=== PATIENT | female | born 1970 | race Caucasian/White ===

== ENCOUNTER → 2016-11-26 | Outpatient (CLI) | payer BC, OTHER ==
[~2016-11-26] MED LIST: DARV100T; FLEXERIL; IBUP800T; LEVA500T; MIDOL; MUCINEX OTC; SUDAFED; VICO5TAB
--- NOTE | 2016-11-27 04:13 | REP ---
Clinical: Vaginal bleeding and history of leiomyoma. Technique: Transabdominal pelvic ultrasound followed by transvaginal examination for better evaluation of the endometrium and adnexa. Comparison: 12/16/2010. Findings: Bladder is unremarkable and measures 8.2 x 6.5 x 4.7 cm. Anteverted, enlarged and heterogeneous uterus measures 14.5 x 9.5 x 10.3 cm. A central, submucosal heterogeneous fibroid is again noted measuring 5.9 cm maximal diameter with mass effect on the endometrial canal. More proximal portion of the endometrial canal in the lower uterine segment appears normal and measures 7.8 mm thickness. No endocervical fluid is identified on current examination. The bilateral ovaries are normal in appearance. Right ovary measures 3.1 x 2.4 x 2.4 cm. Left ovary measures 4.7 x 2.5 x 2.5 cm. No pelvic fluid or adnexal mass lesion. Impression: Large heterogeneous submucosal fibroid increased from prior examination and currently measuring 5.9 cm maximal diameter. Signed by Philipp Roca MD 11/27/2016 04:04 A
== END ==
LOC: M RAD 16:04
PROVIDERS: ATTEND Obstetrics & Gynecology
DX: D25.1 Intramural leiomyoma of uterus (principal)

== ENCOUNTER 2017-02-19 05:41 | Day surgery (SDC) | payer BC, OTHER ==
[~2017-02-19] VITALS: Ht 165.1 cm; Wt 99.3 kg
[2017-02-19] VITALS (7 sets, daily range): BP systolic 111–135; BP diastolic 57–79
[~2017-02-19 05:41] MED LIST changes: +IBUP200C PO; +MIDO200C PO; +SUDA1TAB3 PO; +ZOLO100T PO; +ZYRT10CA PO
[2017-02-19] MEDS ORDERED: LR 1,000 ML IV SCH (06:00)
[2017-02-19 06:19] LABS: MEAN CORPUSCULAR HEMOGLOBIN 20.6 pg (27.0-33.0); MEAN CORPUSCULAR HGB CONC 28.4 g/dl (32.0-36.5); MEAN CORPUSCULAR VOLUME 72.3 fl (80.0-96.0); WHITE BLOOD COUNT 6.2 K/mm3 (4.0-10.0)
[2017-02-19 06:30] LABS: CONTROL LINE HCG INT CTR LINE PRESENT
[2017-02-19] MEDS ORDERED: METHYLENE BLUE 0.5% (5MG/ML) 10 ML AMP (PROVAYBLUE)(Q9968 PER 1MG) As Ordered ONE (07:15)
[2017-02-19] MEDS ORDERED: PROPOFOL 200 MG/20 ML VIAL As Ordered ONE ×2 (07:23→10:45)
[2017-02-19] MEDS ORDERED: ROCURONIUM BROMIDE 50 MG/5 ML VIAL As Ordered ONE ×3 (07:23→10:15)
[2017-02-19] MEDS ORDERED: LIDOCAINE 2% INJ 100 MG/5 ML SDV (FOR ANES.) As Ordered ONE (07:23)
[2017-02-19] MEDS ORDERED: fentaNYL 250 MCG/5 ML INJECTION (J3010) As Ordered ONE (07:23)
[2017-02-19] MEDS ORDERED: MIDAZOLAM INJ 2 MG/2 ML VIAL (J2250) As Ordered ONE (07:24)
[2017-02-19] MEDS ORDERED: PHENYLephrine HCL 500 MCG/5 ML (100MCG/ML) SYRINGE (J2370) As Ordered ONE (08:25)
[2017-02-19] MEDS ORDERED: ePHEDrine SULFATE 25 MG/5 ML(5MG/ML) SYRINGE As Ordered ONE (08:25)
[2017-02-19] MEDS ORDERED: ONDANSETRON 4MG/2ML VIAL (J2405) As Ordered ONE (08:30)
[2017-02-19] MEDS ORDERED: NEOSTIGMINE 1MG/ML 5 ML SYRINGE (J2710) As Ordered ONE (08:30)
[2017-02-19] MEDS ORDERED: KETOROLAC 60 MG/2 ML VIAL (J1885) As Ordered ONE (08:30)
[2017-02-19] MEDS ORDERED: dexameTHASONE 4 MG/ML 1ML VIAL (J1100) As Ordered ONE (08:30)
[2017-02-19] MEDS ORDERED: GLYCOPYRROLATE INJ 0.2 MG/ML 2 ML VIAL As Ordered ONE (08:30)
[2017-02-19] MEDS ORDERED: HYDROmorphone HCL 2 MG/ML 1ML VIAL (J1170) As Ordered ONE (08:31)
[2017-02-19] MEDS ORDERED: LABETALOL HCL 100 MG/20 ML VIAL As Ordered ONE (09:17)
[2017-02-19] MEDS: LR 1,000 ML IV SCH ×4 (12:31→21:00)
[2017-02-19] MEDS ORDERED: fentaNYL 100 MCG/2 ML INJECTION (J3010) IV PRN (12:45)
[2017-02-19] MEDS ORDERED: MORPHINE 2 MG/ML 1ML SYRINGE IV PRN (12:45)
[2017-02-19] MEDS ORDERED: EPIDURAL/PCA KEYS XX PRN (13:00)
[2017-02-19] MEDS ORDERED: NALOXONE INJ 0.4 MG/1 ML VIAL (J2310) IV PRN (13:00)
[2017-02-19] MEDS ORDERED: NORCO, ANEXSIA 5/325MG TABLET (HYDROcodone/ACETAMINOPHEN) PO PRN (13:00)
[2017-02-19] MEDS ORDERED: NALBUPHINE HCL 10 MG/ML AMP (J2300) IV PRN (13:00)
[2017-02-19] MEDS ORDERED: MORPHINE PCA 1MG/ML 100ML CADD IV PRN (13:00)
[2017-02-19] MEDS ORDERED: IBUPROFEN 600 MG TAB PO PRN (13:00)
[2017-02-19] MEDS ORDERED: diphenhydrAMINE INJ 50MG/ML VIAL (J1200) IV PRN (13:00)
[2017-02-19] MEDS: ONDANSETRON 4MG/2ML VIAL (J2405) IV PRN ×2 (13:30→18:46)
[2017-02-19] MEDS ORDERED: METOCLOPRAMIDE INJ 10MG/2ML VIAL (J2765) IV PRN (13:45)
[2017-02-19] MEDS ORDERED: ONDANSETRON 4MG/2ML VIAL (J2405) IV PRN (13:45)
[2017-02-20] VITALS: BP 107/55
[2017-02-20 04:00] VITALS: BP 106/57
[2017-02-20] MEDS: LR 1,000 ML IV SCH (04:02)
[2017-02-20 08:00] VITALS: BP 120/70
[2017-02-20 08:12] LABS: MEAN CORPUSCULAR HEMOGLOBIN 21.2 pg (27.0-33.0); MEAN CORPUSCULAR HGB CONC 29.2 g/dl (32.0-36.5); MEAN CORPUSCULAR VOLUME 72.6 fl (80.0-96.0); RED CELL DISTRIBUTION WIDTH 17.3 % (11.5-14.5)
[2017-02-20] MEDS ORDERED: NORC1TAB4 PO (08:45)
[2017-02-20] MEDS ORDERED: ZOLO100T PO (08:45)
[2017-02-20] MEDS ORDERED: ADVI200T PO (08:45)
[2017-02-20] MEDS ORDERED: SERTRALINE 100 MG TAB PO SCH (09:00)
--- NOTE | 2017-02-20 15:30 | RO ---
DATE OF PROCEDURE: 02/19/2017 PREPROCEDURE DIAGNOSES/INDICATION FOR SURGERY: Menorrhagia, dysmenorrhea and fibroids. POSTPROCEDURE DIAGNOSES: Menorrhagia, dysmenorrhea and fibroids. PROCEDURE: Robotic-assisted hysterectomy with bilateral salpingectomy. The patient retained her ovaries at her request. She also had cystoscopy due to some unusual adhesions along the pelvic side wall and closer than average proximity to the ureter and the distortion by the large fibroids. The uterus was 528 grams, weighed in the operating room. SURGEON: Dr. Emily Aviles [employer]ING [employer]TER HELPER: Kendy Rivas NP ANESTHESIA: General endotracheal anesthesia. DESCRIPTION OF PROCEDURE: Lilibeth was brought to the operating room where sufficient general endotracheal anesthesia was induced, and she was prepped, draped, and positioned in the usual sterile fashion. Weighed speculum was placed and with effort a single toothed tenacula was put on the cervix. The uterus was quite elevated from the pelvis, as noted on examination in the office. The uterine manipulator was placed with care taken to get a good placement and more effort than is typical because of the length of the vagina, which is unusually long. The uterus also sounded to 14 after this. Under anesthesia, the uterus felt about 18 weeks size in this patient, although she is not 6 foot tall either. After the uterine manipulator had been placed and the Morin with the ability to backfill was placed, attention was turned to the abdomen where a transverse semilunar incision was made at the umbilicus. Sharp and blunt dissection were continued through the subcutaneous tissues to the level of the rectus fascia, which was transversely incised, secured with #0 Vicryl retention sutures, and the peritoneum was bluntly entered under direct visualization. We then placed the Debra cannula and CO2 insufflation was then begun. After adequate CO2 insufflation, the peritoneal cavity was visualized. As noted in the pictures, the uterus is essentially to umbilicus when you add the length of the trocar. We actually had to be careful not to hit the uterus with the trocar because it was well within reach. Initial evaluation did show a window around the uterus anteriorly, smaller than typical but not absent, and normal ovaries. We placed two left sided and right sided port for the robot and placed the patient in Trendelenburg, as it typical and then docked the robot. Kendy Rivas manipulated the uterus, which had limited mobility due to the large size and the fact that it was past the pelvic brim and simply filling most of the space so not tremendously mobile. I operated the robot. We started by freeing the tube from the ovary and then transecting the utero-ovarian suspensory ligaments. These were foreshortened, probably because of the elevation of the uterus. The round ligaments were also cauterized using bipolar and transected. These too were foreshortened, again most likely due to uterine anatomy. Having freed the round ligament and the ovaries most of the way, we noticed on the patient's right side that there was unusually close attachment. The ovary was essentially attached to the uterus and so we were working slowly through this connection and there did not appear to be a lesion. The patient had previous ovarian cystectomy on that side so I do not think that it was attached because of ovarian lesion but rather probably some post surgical scarring had shortening of the tissues with the uterine anatomy because the round ligament was only about 1 cm long on that side as well, so there was less than typical distance. We were able at this point to see the ureter so we had good separation there, so we just worked out way slowly through this dissection but having freed the round and the ovary from the uterus and they of course connected right fallopian tube. I could then see that there was essentially no development of broad ligament whatsoever. The uterus itself was impinging on the right pelvic side wall fully along that way and there was really no peritoneal window, just a connection and there are some pictures of this. I am not sure if that is because just over time that she remodeled or if that is because the fibroid started down in the lower uterine segment on top of the cervix where there would have been a shorter connection and worked its way under the peritoneum. Certainly, at that point, I did not have knowledge of that, but we became concerned that there would be difficulty in developing a plane far enough away from the ureter at this point so we had the team open the open hysterectomy tray so that we would be ready should any of the vessels that were supplying this large fibroid uterus started to bleed and we could not get separation from the ureter. We gradually worked our way anteriorly where we worked with the cold scissors, so I did not cauterize as I worked through this but rather just worked with the cold scissors through the peritoneum as we typically would have in the past in an open case and this way I could free the bladder, we could backfill and see that it was low enough. The patient had a relatively long cervix, so we had some distance there. Having freed the bladder, we were able to work by rotating the uterus clockwise as you looked head down, so left side up. We were able to work on the vascular supply on the left side to dissect the peritoneum down there as well. There were multiple recruited vessels there, more than is typical, but we worked slowly and gradually and as we worked it was very clear that each of them had a pulse and it was not ureter, or at least it appeared very clear and they did bleed on occasion enough that we felt confident that we were working with blood vessels. We gradually freed that side of the uterus. Having freed that side of the uterus and maintained some rotational mobility, then able to work anteriorly on the right side again and then having freed that, we were able to work slowly posteriorly. Again, I used cold scissors on this. I did not cauterize as would typically be the case because I knew that the ureter was in close proximity at this point, so we cut down that peritoneal connection cold, but we were able to do so. Then having that, we isolated the uterine vasculature, rotating the uterus counterclockwise, as you look head down, and so right side up, and secured the blood supply in this fashion. It had splayed out over that enlarged uterus, so we had several branches to work our way through, again more than is typical, but that is to be expected with such a large fibroid uterus. Having worked through these carefully, we went ahead and transected them and then worked our way down medial to those to reach the cervix so that we could have a pedicle that was accessible should we get any bleeding. Having done that, we were able to enter into the colpotomy anteriorly. This I did use cautery once I had freed everything with cold scissors, and we then worked around the left side where we had much more mobility and worked around to the posterior from the left side. We could not get all the way around, even with rotating the uterus, so we went back anteriorly and then worked from anterior to posterior on the left side again. We had some difficulty as we got closer to that ureter, so we rotated the uterus as needed and freed the peritoneum with cold scissors and made sure that we had that ureter falling away and some upward pressure on the cup and then carefully cauterized. When we finally freed the cervix completely, we then delivered that into the vagina. Of course the uterus would not just deliver intact, and there did not appear to be a pedunculated external fibroid that we could just cut off, so I went below. We removed the manipulator and using tenaculum we delivered the cervix and the lower uterine segment into the vagina and then used scissors to just bivalve the uterus so that we could angle it because the fundus was wider than the vagina and so we bivalved the cervix and then delivered first the left fundus and then the right fundus, angling it that way so the uterus was partially split and came out with the attached fallopian tubes, but, of course, not with ovaries, which the patient preferred to retain. We were then able to go back robotically and close the cuff. Having closed it and looked at all of those vessels, I made a decision to go ahead, due to her anatomy and that close proximity, give her some methylene blue and do a cystoscopy. We were able to see with cystoscopy that we had not injured the bladder, as expected after backfilling it several times to know that, but also we were able to see jets of blue from both ureters. We then ended the case and went back to the abdomen and closed through the ports and closed those wounds. The fascial wound at the umbilicus and the slightly larger trocar was closed with #0 Vicryl retention sutures and the 8 mm ports were all closed at the skin with #3-0 and subcuticular stitch. That skin stitch was also used at the umbilicus. Dry sterile dressings then applied. Estimated blood loss for the procedure: About 100 mL. Fluid replacement was crystalloid. Complications: None. Condition and Disposition: Lilibeth tolerated the procedure (cut off).
== END 2017-02-20 12:25 | disposition home or self-care (01) ==
LOC: M SDC 05:41 → M PED 13:18 → M SDC 02-20 12:25
PROVIDERS: ATTEND Obstetrics & Gynecology
DX: N92.0 Excessive and frequent menstruation with regular cycle (principal); N94.6 Dysmenorrhea, unspecified; D25.9 Leiomyoma of uterus, unspecified; K44.9 Diaphragmatic hernia without obstruction or gangrene; K58.8 Other irritable bowel syndrome; Z87.891 Personal history of nicotine dependence; Z79.899 Other long term (current) drug therapy
CPT/HCPCS: 36415; 58573; 84703; 85027; 86850; 86900; 86901; 88309; 96375; 96376; J0690; J1100; J1170; J1200; J1885; J2250; J2370; J2405; J2710; J3010; Q9968

== ENCOUNTER → 2017-03-09 | Outpatient (REF) | payer OTHER ==
[~2017-03-09] MED LIST changes: +ADVI200T PO; +NORC1TAB4 PO
[2017-03-09 13:39] LABS: BASO % 0.3 % (0.0-1.0); EOS # 0.2 K/mm3 (0.0-0.50); EOS % 1.9 % (0.0-3.0); LARGE UNSTAINED CELL # 0.1 K/mm3 (0.0-0.4); LARGE UNSTAINED CELL % 1.5 % (0.0-4.0); LYMPH # 1.4 K/mm3 (1.5-4.5); LYMPH % 16.1 % (24.0-44.0); MEAN CORPUSCULAR HEMOGLOBIN 21.2 pg (27.0-33.0); MEAN CORPUSCULAR HGB CONC 27.9 g/dl (32.0-36.5); MEAN CORPUSCULAR VOLUME 75.9 fl (80.0-96.0); MONO # 0.3 K/mm3 (0.0-0.8); MONO % 3.2 % (0.0-5.0); NEUTROPHILS # 6.9 K/mm3 (1.8-7.7); NEUTROPHILS % 77.1 % (36.0-66.0); PLATELET COUNT, AUTOMATED 463 k/mm3 (150-450); RED CELL DISTRIBUTION WIDTH 18.1 % (11.5-14.5)
== END ==
LOC: M SFHCLERA 11:51
PROVIDERS: ATTEND Nurse Practitioner Family
DX: R53.83 Other fatigue (principal)

== ENCOUNTER → 2017-03-09 | Outpatient (CLI) | payer BC, OTHER ==
--- NOTE | 2017-03-09 16:25 | REP ---
Clinical: Cough . Comparison: 04/24/2010 . Technique: PA and lateral. Findings: The mediastinum and cardiac silhouette are normal. The lung sevilla are clear and without acute consolidation, effusion, or pneumothorax. The skeletal structures are intact and normal. Impression: 1. No acute cardiopulmonary process. Signed by Philipp Roca MD 03/09/2017 12:04 P
== END ==
LOC: M LRY 11:30
PROVIDERS: ATTEND Nurse Practitioner Family
DX: R05 Cough (principal)

== ENCOUNTER → 2017-05-15 | Outpatient (CLI) | payer OTHER ==
[~2017-05-15] MED LIST changes: -IBUP200C PO; +IBUP200C10 PO
[2017-05-15 19:50] LABS: MEAN CORPUSCULAR HEMOGLOBIN 21.7 pg (27.0-33.0); MEAN CORPUSCULAR HGB CONC 29.2 g/dl (32.0-36.5); MEAN CORPUSCULAR VOLUME 74.3 fl (80.0-96.0); RED CELL DISTRIBUTION WIDTH 17.4 % (11.5-14.5); WHITE BLOOD COUNT 9.2 K/mm3 (4.0-10.0)
== END ==
LOC: M LRY 14:12
PROVIDERS: ATTEND Nurse Practitioner Women's Health
DX: R53.83 Other fatigue (principal)

== ENCOUNTER → 2017-12-31 | Outpatient (REF) | payer OTHER ==
[2017-12-31 11:32] LABS: CHOLESTEROL LEVEL 273 MG/DL (<200); CHOLESTEROL RISK RATIO 6.066 (<5); GLUCOSE, FASTING 88 MG/DL (70-100); HDL CHOLESTEROL 45 MG/DL (>40); LDL CHOLESTEROL 202.4 MG/DL (<100); NON-HDL-C 228 MG/DL; TRIGLYCERIDES LEVEL 128 MG/DL (<150)
== END ==
LOC: M SFHCLERA 08:01
DX: Z13.1 Encounter for screening for diabetes mellitus (principal); Z13.220 Encounter for screening for lipoid disorders

== ENCOUNTER → 2018-09-23 | Outpatient (REF) | payer OTHER ==
[2018-09-23 16:33] LABS: CHOLESTEROL LEVEL 244 MG/DL (<200); CHOLESTEROL RISK RATIO 5.951 (<5); HDL CHOLESTEROL 41 MG/DL (>40); LDL CHOLESTEROL 167 MG/DL (<100); NON-HDL-C 203 MG/DL; TRIGLYCERIDES LEVEL 179 MG/DL (<150)
== END ==
LOC: M SFHCLERA 09:54
DX: E78.5 Hyperlipidemia, unspecified (principal)

== ENCOUNTER → 2018-12-21 | Outpatient (REF) | payer OTHER ==
[~2018-12-21] MED LIST changes: +ALAVTAB PO; +BIOF4GEL2 TOP; -IBUP200C10 PO; +IBUP200C25 PO; +TYLE500T78 PO; +ZANT150T15 PO; +[UNRECOGNIZED DRUG - OTHER] TOP
[2018-12-21 17:01] LABS: BASO % 0.2 % (0.0-1.0); EOS # 0.1 10^3/uL (0.0-0.50); EOS % 0.8 % (0.0-3.0); HEMATOCRIT 43.5 % (36.0-47.0); HEMOGLOBIN 14.5 g/dl (12.0-15.5); LYMPH # 2.1 10^3/uL (1.5-4.5); LYMPH % 22.1 % (24.0-44.0); MEAN CORPUSCULAR HEMOGLOBIN 30.1 pg (27.0-33.0); MEAN CORPUSCULAR HGB CONC 33.3 g/dl (32.0-36.5); MEAN CORPUSCULAR VOLUME 90.4 fl (80.0-96.0); MONO # 0.6 10^3/uL (0.0-0.8); MONO % 5.9 % (0.0-5.0); NEUTROPHILS # 6.7 10^3/uL (1.8-7.7); NEUTROPHILS % 70.6 % (36.0-66.0); PLATELET COUNT, AUTOMATED 296 10^3/uL (150-450); RED BLOOD COUNT 4.81 10^6/uL (4.00-5.40); WHITE BLOOD COUNT 9.4 10^3/uL (4.0-10.0)
[2018-12-21 17:02] LABS: BLOOD UREA NITROGEN 9 MG/DL (7-18); CALCIUM LEVEL 8.8 MG/DL (8.5-10.1); CARBON DIOXIDE LEVEL 28 MEQ/L (21-32); CHLORIDE LEVEL 102 MEQ/L (98-107); CREATININE FOR GFR 0.84 MG/DL (0.55-1.30); GLOMERULAR FILTRATION RATE > 60.0 (>58); GLUCOSE, FASTING 92 MG/DL (70-100); POTASSIUM SERUM 3.9 MEQ/L (3.5-5.1); SODIUM LEVEL 137 MEQ/L (136-145)
== END ==
LOC: M SFHCLERA 12:05
PROVIDERS: ATTEND Family Medicine
DX: R07.1 Chest pain on breathing (principal)

== ENCOUNTER → 2018-12-21 | Outpatient (CLI) | payer BC, OTHER ==
[~2018-12-21] MED LIST changes: +AUGM875T28 PO
--- NOTE | 2018-12-21 08:55 | REP ---
Chest x-ray: Three views. History: Chest pain. Comparison chest x-ray: March 09, 2017. Findings: There is a 7.2 cm pleural-based mass in the left base posteriorly and medially. Prior CT studies from 2010 showed a rounded fluid density structure in this location and the lesion may not be new. It does appear to be more prominent than on chest x-ray of March 09, 2017. There is slight blunting of the left lateral pleural angle. No free pleural effusion is seen. No acute infiltrate is noted. Right lung is clear. Heart is not enlarged. No bony abnormality is seen. Impression: 7.2 cm mass density in the left base posteromedially. Pleural-based. This may be residual pleural effusion from 2010 pleuroparenchymal disease. Consider chest CT. Electronically Signed by Giovany Morales MD 12/21/2018 07:26 P
== END ==
LOC: M LRY 07:56
PROVIDERS: ATTEND Family Medicine
DX: R07.1 Chest pain on breathing (principal)

== ENCOUNTER → 2018-12-22 | Outpatient (CLI) | payer BC, OTHER ==
[~2018-12-22] MED LIST changes: +ISOVUE-370 76% 100ML VIAL (Q9967) As Ordered ONE
--- NOTE | 2018-12-23 08:29 | REP ---
Clinical: Follow up pleural based density. Comparison: 04/23/2010. Technique: Axial contrast enhanced images from the thoracic inlet to the upper abdomen with coronal and sagittal re-formations using 100 ml Isovue 370 intravenous contrast material. Findings: There appears to be a new reaccumulation of previously identified loculated pleural collection along the posteromedial left lung base which currently measures 7.4 x 6.1 cm maximal diameter and 8.9 cm craniocaudal length with small amount of adjacent passive atelectasis identified. The bilateral lung sevilla are otherwise well aerated and clear. No further consolidation, nodule or mass lesion appreciated. No further pleural effusion or reaction identified. The tracheobronchial tree is patent. No significant adenopathy noted. Mediastinum demonstrates normal thoracic aorta, pulmonary vasculature and heart/pericardium. Limited evaluation of the upper abdomen demonstrates hepatic steatosis. Impression: 1. New reaccumulation of previously identified loculated medial left basilar pleural fluid measuring approximately 7.4 x 6.1 x 8.9 cm. Minimal adjacent passive atelectasis noted. 2. Hepatic steatosis. Electronically Signed by Philipp Roca MD 12/23/2018 08:21 A
== END ==
LOC: M RAD 17:23
PROVIDERS: ATTEND Family Medicine
DX: R07.1 Chest pain on breathing (principal)
CPT/HCPCS: 71260; Q9967

== ENCOUNTER 2018-12-23 16:41 | Observation (INO) | payer BC, OTHER ==
[~2018-12-23 16:41] MED LIST changes: -ALAVTAB PO; -AUGM875T28 PO; -BIOF4GEL2 TOP; -TYLE500T78 PO; -ZANT150T15 PO; -[UNRECOGNIZED DRUG - OTHER] TOP
[2018-12-23 18:00] VITALS: BP 198/106
[2018-12-23 18:36] VITALS: BP 160/84
[2018-12-23] MEDS ORDERED: ACETAMINOPH W/CODEINE #3 TAB UD PO ONE (19:00)
[2018-12-23] MEDS ORDERED: BIOF4GEL2 TOP (19:10)
[2018-12-23] MEDS ORDERED: [UNRECOGNIZED DRUG - OTHER] TOP (19:10)
[2018-12-23] MEDS ORDERED: ALAVTAB PO (19:10)
[2018-12-23] MEDS ORDERED: ZANT150T15 PO (19:10)
[2018-12-23] MEDS ORDERED: TYLE500T78 PO (19:11)
[2018-12-23] MEDS: IBUPROFEN 800 MG TAB PO PRN (19:56)
[2018-12-23] MEDS: SERTRALINE 100 MG TAB PO SCH (19:56)
--- NOTE | 2018-12-23 20:16 | HPE ---
DATE OF ADMISSION: 12/23/2018 PRIMARY CARE PROVIDER: Dr. Dyan Frankel at [facility]. CHIEF COMPLAINT: Dyspnea. HISTORY OF PRESENT ILLNESS This is a 48-year-old female with a past medical history significant for an empyema in 2009 who presented to her primary care provider about 2 or 3 days ago complaining of left-sided pleuritic chest pain. She states it has been going on for a total of 8 days. It hurts to take a deep breath. She will have some burning and aching pain in the left back part of her chest, which will radiate up into the left shoulder and go from a 2 out of 10 to a 6 out of 10 on deep inhalation. She denies any fevers or chills or shortness of breath though she has noticed some dyspnea with extreme levels of exertion. She has a dry cough which she has had for about 10 years since her first empyema. She denies any sputum production, wheezes, hemoptysis, orthopnea, paroxysmal nocturnal dyspnea (PND), rigors or night sweats. She did need a chest tube in 2009 for her empyema. FAMILY HISTORY Significant for a maternal grandmother who had recurrent pleural effusions though that was attributed to Actos at the time. REVIEW OF SYSTEMS Constitutional: Denies any fevers, weight loss, weight changes, chills or night sweats. HEENT: Denies any headache, visual changes, runny nose, sore throat, epistaxis, sinus pain, tinnitus or odinophasia. Cardiovascular: Denies any PND, orthopnea, edema, palpitations, claudication, shortness of breath or radiation of chest pain to her jaw or her left arm. She is positive for dyspnea and chest pain as described above. Respiratory: Positive for a dry cough for about 10 years. Negative for sputum production, wheezes, hemoptysis. Gastrointestinal: Negative for abdominal pain, difficulty swallowing, anorexia, nausea, vomiting, constipation, diarrhea, obstipation, hematemesis, hematochezia, melena or tenesmus. Genitourinary: Denies incontinence, dysuria, hematuria, nocturia, polyuria. Musculoskeletal: Positive for back/posterior chest pain. Negative for stiffness, joint swelling, decreased range of motion, crepitus or arthritis. Integumentary: Denies any pruritus, rashes, dry lesions, wounds or incisions. Neuro: Denies any changes to sight, smell, hearing or taste. Denies seizures, headaches, paresthesias, numbness, weakness. Psychiatric: Admits to having some depression and anxiety as well as obsessive-compulsive behaviors. Denies any changes to her sleep patterns, paranoia, anhedonia or episodes of citlalli. Endocrine: Denies any mood swings, sweatiness, diarrhea, tremor, palpitations, constipation, dry skin or polydipsia. Hematologic: Denies any easy bruising/bleeding, anemia, purpura or petechiae. Lymphatic: Denies any lumps or bumps anywhere. PAST MEDICAL HISTORY: Obesity. Adjustment reaction Depression/anxiety with some obsessive compulsive features. MEDICATIONS - [id number] Zantac as needed - ibuprofen 800 mg three times a day - ProAir inhaler 2 puffs as needed every 4 hours - Flovent 1 puff as needed twice a day - Zoloft 100 mg orally at bedtime PAST SURGICAL HISTORY Skin biopsy in the gluteal region that was positive for melanoma. Left foot plantar wart being treated by Dr. Reyes. Exploratory laparotomy in 1987. Cholecystectomy in 2005. Cryotherapy of cervix for GONZÁLEZ 2/3 in 1989. Chest tube insertion March 2010. Partial hysterectomy in January 2017, the patient does not have her cervix or uterus, still has her tubes and ovaries. FAMILY HISTORY Dad is alive at age 72 with hypothyroidism, diabetes mellitus and lung cancer which is in remission. Mom is alive and is age 69 with colon cancer. The patient has two children, a son who is age 25 of a history of histoplasmosis and a daughter who is alive at age 20 without any medical problems. Maternal grandmother also had recurrent lower pleural effusions which was attributed to Actos. 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 She has a two pack year smoking history. She used to drink quite heavily, but now only has an occasional beer. She denies recreational drug use as her parents were heroin addicts. She lives with her and a dog, which is a pug mix. She denies any exposure to asbestos, tuberculosis, chickens or cats. No recent travel. ALLERGIES ZITHROMAX has an adverse side effect of nausea and vomiting. HOSPITALIZATIONS 1. Childbirth in 1991 and 1997. 2. Pneumonia with empyema in 2009. PHYSICAL EXAMINATION Vitals: Temperature 98.1, pulse 85 and regular, respiratory rate 16, blood pressure 160/84, pulse ox is 94% on room air. General: Middle-aged obese female in no acute distress. She is pleasant and cooperative. HEENT: Atraumatic, normocephalic. Mucous membranes are moist. Pupils are equal, round and reactive to light and accommodation. Extraocular eye movements are intact. The patient has her own teeth and dentition is fair. The posterior pharynx is free of exudates or erythema. Neck: Supple, no masses. No JVD. Lungs: Clear to auscultation bilaterally. No wheezes, rhonchi or rales. There is no dullness to percussion nor is there any E to A egophony. Heart: Regular rate and rhythm. No murmurs, gallops or rubs. Abdomen: Obese, soft, normoactive bowel sounds. No tenderness to palpation in all four quadrants. Back: Straight. No structural abnormalities. No CVA tenderness bilaterally. Extremities: No edema, clubbing or cyanosis bilaterally. Capillary refill is less than 2 seconds in all four extremities. Neuro: Awake, alert and oriented times three. Cranial nerves II-XII grossly intact. No diminished sensation. Muscle strength is 5/5 throughout. Laboratory and imaging data were obtained through the EMR. Laboratory data from 12/21/2018: CBC: WBC 9.4, hemoglobin 14.5, hematocrit 43.5, platelets 296. Differential: 71% neutrophils, 22% lymphocytes, 6% monocytes. ESR 23. Chemistry: Sodium 137, potassium 3.9, chloride 102, carbon dioxide 28, BUN 9, creatinine 0.84, fasting glucose 92, calcium 8.8, C-reactive protein 0.92. Sputum culture and gram stain are pending. IMAGING STUDIES Chest x-ray from 12/21/2018 shows a 7.2 cm pleural based mass in the left base posteriorly and medially. This is more prominent that on the chest x-ray of March 09, 2017. There is blunting of the left lateral pleural angle. No free pleural effusion is seen. CT CHEST from 12/22/2018 shows reaccumulation of a previously identified loculated pleural collection along the posterior medial left lung base, currently measuring 7.4 x 6.1 cm maximum diameter and 8.9 cm craniocaudal length with small amount of adjacent passive atelectasis identified. Otherwise the bilateral lung sevilla are aerated and clear. No further consolidation, nodule or mass lesion appreciated. No pleural effusion or reaction identified. Tracheobronchial tree is patent. No significant adenopathy. Mediastinum demonstrates normal thoracic aorta, pulmonary vasculature and heart/pericardium. Limited evaluation of the upper abdomen demonstrates hepatic steatosis. ASSESSMENT This is a 48-year-old female who has a past medical history significant for empyema in 2010 requiring a chest tube who presented with pleurisy. On chest CT she appears to have a loculated lung mass. PLAN 1. Lung mass on CT scan with her past medical history of empyema and elevated inflammatory markers, this could represent a reaccumulation of fluid, new infection, or reactive infiltrate. Less likely would be lung cancer. Dr. Morales has already been consulted and thinks that interventional radiology may be able to do a thoracentesis tomorrow morning. I have ordered thoracentesis lab work. 2. Pleurisy. Most likely due to the lung mass in the left lower lobe. We will undergo thoracentesis. She is currently not hypoxic, so I do not believe she needs nebulizer treatments or steroids at this time. We will give her Motrin and Tylenol three as needed for pain. 3. Anxiety and depression. Continue home Zoloft. 4. Deep venous thrombosis (DVT) prophylaxis, TEDs and sequentials, the patient is able to ambulate and was encouraged to do so. 5. Diet is regular. DISPOSITION The patient will be admitted observation to Dr. Mavis Stuart's service starting at 0700 hours on 12/24/2018. My faculty preceptor for this patient encounter was physically present during the encounter and was fully available. All aspects of the patient interview, examination, medical decision making process, and medical care plan development were reviewed and approved by the faculty preceptor. The faculty preceptor is aware and concurs with the plan as stated in the body of this note and will attest to such by his/her co-signature.
[2018-12-23 22:00] VITALS: BP 156/85
[2018-12-24 06:00] VITALS: BP 135/79
[2018-12-24 06:04] LABS: HEMATOCRIT 39.6 % (36.0-47.0); HEMOGLOBIN 13.1 g/dl (12.0-15.5); MEAN CORPUSCULAR HGB CONC 33.1 g/dl (32.0-36.5); MEAN CORPUSCULAR VOLUME 90.6 fl (80.0-96.0); PLATELET COUNT, AUTOMATED 259 10^3/uL (150-450); RED BLOOD COUNT 4.37 10^6/uL (4.00-5.40)
[2018-12-24 06:27] LABS: BLOOD UREA NITROGEN 10 MG/DL (7-18); CALCIUM LEVEL 8.6 MG/DL (8.5-10.1); CARBON DIOXIDE LEVEL 30 MEQ/L (21-32); CHLORIDE LEVEL 105 MEQ/L (98-107); GLOMERULAR FILTRATION RATE > 60.0 (>58); GLUCOSE, FASTING 85 MG/DL (70-100); POTASSIUM SERUM 3.9 MEQ/L (3.5-5.1); SODIUM LEVEL 141 MEQ/L (136-145)
[2018-12-24] MEDS ORDERED: LIDOCAINE 1% MDV 20ML VIAL As Ordered ONE (09:39)
[2018-12-24 11:40] VITALS: BP 172/102
[2018-12-24 11:43] LABS: SOURCE, BODY FLUID PLEURAL
[2018-12-24 11:44] LABS: APPEARANCE, BODY FLUID TURBID (CLEAR)
--- NOTE | 2018-12-24 12:02 | REP ---
Soft-tissue ultrasound left chest: History: Low density cystic lesion in the posterior and medial pleural space on the left on CT study. Sonographic evaluation for ultrasound-guided catheter drainage procedure. Findings: The known cystic lesion in the left posteromedial pleural space was poorly seen by ultrasound. This was not sufficient to provide continent guidance for catheter drainage. The catheter drainage was performed under CT guidance because of this. Impression: The target lesion in the left chest was poorly visualized by ultrasound. Electronically Signed by Giovany Morales MD 12/24/2018 02:42 P
[2018-12-24] MEDS ORDERED: NORCO, ANEXSIA 5/325MG TABLET (HYDROcodone/ACETAMINOPHEN) PO PRN ×2 (12:15→12:30)
[2018-12-24 12:55] LABS: PH BODY FLUID 7.607 UNITS (NOT ESTABLISHED); SOURCE, BODY FLUID pH PLEURAL
[2018-12-24] MEDS: AUGMENTIN 500 MG TAB PO SCH ×2 (13:45→21:05)
[2018-12-24 14:00] VITALS: BP 168/92
[2018-12-24 14:06] LABS: AMYLASE, BODY FLUID 7187 U/L (NOT ESTABLISHED); CHOLESTEROL, BODY FLUID < 50 MG/DL (NOT ESTABLISHED); LDH, BODY FLUID 4832 U/L (NOT ESTABLISHED); SOURCE, BODY FLUID ALBUMIN PLEURAL; SOURCE, BODY FLUID AMYLASE PLEURAL; SOURCE, BODY FLUID CHOL PLEURAL; SOURCE, BODY FLUID GLUCOSE PLEURAL; SOURCE, BODY FLUID LDH PLEURAL; SOURCE, BODY FLUID TOT PROTEIN PLEURAL; SOURCE, BODY FLUID TRIG PLEURAL; TRIGLYCERIDE, BODY FLUID 21 MG/DL (NOT ESTABLISHED)
--- NOTE | 2018-12-24 14:43 | REP ---
CHEST X-RAY: Two views. HISTORY: Post thoracentesis catheter placement. Comparison study December 21, 2018. FINDINGS: As string-fixed pigtail catheter has been placed percutaneously from posterior approach into the left posteromedial pleural fluid collection. The 7 cm area seen radiographically is no longer apparent. There is some adjacent atelectasis. Lung sevilla are otherwise clear. There is no evidence of pneumothorax. IMPRESSION: A left posteromedial pigtail catheter has been placed at the left base. No complication is visible. Electronically Signed by Giovany Morales MD 12/24/2018 03:52 P
--- NOTE | 2018-12-24 15:58 | CR ---
DATE OF CONSULTATION: 12/24/2018 Pulmonary team was asked by Dr. Stuart for consultation of Lilibeth Garcia. Ms. Garcia is a pleasant 48-year-old female who was admitted with left-sided pleural fluid collection suspicious for empyema. The patient gives a history that approximately a week ago she began to have some left-sided pleuritic pain and difficulty lying on her contralateral right side because of discomfort. She states that besides the discomfort she had no other symptoms. She denied fevers or chills, night sweats or unexplained weight loss. She denied any specific dyspnea but states that she did feel deep breaths were difficult at times. She does note a chronic dry cough that has been ongoing for 10 years. She states that this first started when she had an empyema approximately nine years ago in 2009. The patient denies any hemoptysis or sputum production. She states that she did see her primary care provider who ordered a chest CT that did show a left-sided fluid collection suspicious for empyema. Arrangements were made for the patient to be admitted. The patient previously had an empyema in 2009 that required a chest tube. She reports that no conclusive reason as to why she previously had an empyema was able to be discovered. She was treated with antibiotics at that time. The patient states that she had been fine after treatment until recently. She denies any travel outside of the country other than [place]. 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 She works with patients but denies any significant exposures. She states that she did have a purified protein derivative (PPD) done in the fall that was negative. She has never had tuberculosis. She denies any significant respiratory history and denies history of asthma. She is a nonsmoker. She states she had a remote history of social smoking many years ago but has not smoked in years. She drinks an occasional beer. She denies any illicit drugs. The patient had a partial hysterectomy in 2017 for dysmenorrhea but denies any history of endometriosis. She did retain her ovaries. She denies any history of connective tissue disorder. She denies any trauma to the chest wall or any injury to the thoracic duct. She does state she has a history of some gastrointestinal (GI) issues including increased belching and gas production over the last four weeks or so. She was started on Zantac which she uses as needed. She also states that she has a history of a hiatal hernia. She states that she will occasionally use the Zantac but does not take it regularly. She does state she has a history of allergies and will sometimes use [id number] antihistamines. She notes some irritable bowel syndrome. She describes her health as good and states that she is rarely sick. REVIEW OF SYSTEMS: The patient denies fevers, chills, weight loss, night sweats. HEENT: The patient denies headaches, vision changes, blurry or double vision, sore throat, nasal discharge, ear pain, epistaxis. CARDIOVASCULAR: The patient denies any current chest pain. She did have some pleuritic chest pain previously. She denies any tachycardia. Denies any history of myocardial infarction ([place]) or congestive heart failure. GASTROINTESTINAL (GI): The patient has a history of irritable bowel syndrome. She does note some occasional reflux which is controlled with medications and diet. She denies any current diarrhea or constipation. Denies any nausea or vomiting. GENITOURINARY (): The patient denies any urinary symptoms. She denies any history of kidney stones. She does have a history of hysterectomy from dysmenorrhea but denies any history of endometriosis. She did have her gallbladder out in 2005. MUSCULOSKELETAL: The patient denies any chronic pain or joint swelling. ENDOCRINE: The patient denies diabetes or thyroid issues. The patient denies hot or cold intolerance. PSYCHIATRIC: The patient has a history of depression and anxiety. HEMATOLOGY: The patient denies any bleeding issues. SKIN: The patient any rashes. PAST MEDICAL HISTORY: 1. Depression. 2. Anxiety. 3. Obesity. 4. Partial hysterectomy in 2017 with retention of ovaries. 5. Cholecystectomy in 2005. 6. Chest tube from empyema in 2009. 7. Gastroesophageal reflux disease (GERD). HOME MEDICATIONS: - Zantac as needed - ibuprofen 800 mg as needed - ProAir two puffs every four hours as needed - Flovent one puff twice a day as needed - Zoloft 100 mg by mouth daily HOSPITAL MEDICATIONS: - ibuprofen 800 mg every eight hours as needed for pain - Zoloft 100 mg by mouth at bedtime - [place] 1-2 tablets every 4-6 hours as needed for pain - Augmentin 500 mg by mouth every eight hours FAMILY HISTORY: Mother is living. History of colon cancer. Father is living. History of lung cancer, diabetes mellitus and hypothyroidism. 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 She has a remote history of smoking socially but has not smoked in years. She has an occasional alcoholic beverage. She denies any recreational drug use. She lives with her . She denies any history of travel outside the country other than [place] and [place] but states she has not traveled recently. ALLERGIES: ZITHROMAX which causes nausea and vomiting. PHYSICAL EXAMINATION: VITAL SIGNS: Temperature 97.8, pulse 88, respiratory rate 18, blood pressure 135/79, pulse oximetry 96%. GENERAL: The patient is alert and oriented times three. She is conversant and speaks in complete sentences. She does have a chest tube in place. HEENT: Head is normocephalic, atraumatic. Moist mucous membranes. Dentition is good. NECK: Supple. No cervical lymphadenopathy. No jugular venous distention (JVD). Trachea is midline. PULMONARY: The patient has a chest tube in place in the posterior left back. There is a dressing in place. Breath sounds are clear to auscultation. No wheezes, rales, rhonchi or crackles. No dullness or percussion. CARDIAC: Regular rate and rhythm, S1, S2. No murmurs. ABDOMEN: Positive bowel sounds, soft, nontender. No rebound or guarding. EXTREMITIES: No clubbing, cyanosis, or edema. SKIN: Warm and dry with no evidence of obvious rashes. NEUROLOGIC: Nonfocal grossly. LABORATORY DATA: WBC 6.0, hemoglobin 13.1, hematocrit 39.6, platelets 259. Sodium is 141, potassium 3.9, chloride is 105, carbon dioxide is 30, BUN 10, creatinine 0.80, glucose 85, calcium 8.6, LD 177, CRP is 0.94. Pleural Fluid: PH 7.607, WBCs 85,400, RBC 9, mononuclear percent 11.9, polymorphonuclear percent 88.1, glucose 8, total protein 2.0, albumin 0.3, LDH 4832, amylase 7187, cholesterol less than 50, triglycerides 21, color white, appearance turbid. Pleural fluid cultures are pending. Sputum culture was not performed due to oral contamination. Pleural fluid cytology pending. Chest CT from 12/23/2018 was independently reviewed by Dr. Escobedo and myself and shows loculated medial left basilar pleural fluid measuring 7.4 x 6.1 x 8.9 cm. ASSESSMENT AND PLAN: Pleural fluid collection. Likely empyema. The etiology of this issue is still unclear. It is unclear why a previously healthy patient would have recurrent empyema. She does have some gastrointestinal (GI) issues and possibly this could be due to aspiration, as the patient does have some reflux and history of hiatal hernia. She does have a chest tube in place which we will continue to monitor. Additionally, she is started on antibiotic coverage with Augmentin 500 mg every eight hours. The patient does not seem to have any other significant risk factors for recurrent empyema. We will check immunoglobulin G, A and M. She is a nurse and is monitored with purified protein derivative (PPD) screening which she had in the fall which was negative. We will repeat a chest x-ray in the morning to make sure that all of the fluid has been drained. However, if it is unclear on the chest x-ray imaging then she may require subsequent chest CT. We will make that determination after the chest x-ray. We will continue to follow this patient.
--- NOTE | 2018-12-24 16:05 | REP ---
CT-GUIDED LEFT THORACENTESIS WITH CATHETER PLACEMENT The procedure was performed under the direct supervision of Dr. Morales. The risks and benefits of the procedure were explained to the patient and informed consent was obtained. Patient has a history of an a loculated medial left basilar pleural fluid seen on a previous CT scan dated 12/22/2018. The left pleural effusion was localized using CT guidance. The skin was prepped and draped in a sterile fashion. 1% lidocaine was used as a local anesthetic. Using CT guidance and trocar technique a 10-[place] Skater APDL catheter was inserted. 165 ml of low viscosity beige colored fluid was withdrawn and sent to lab for analysis. The catheter was affixed to the skin and a sterile dressing was applied. The catheter was connected to a Pleur-Evac. The patient tolerated the procedure well and there were no immediate complications. After the appropriate amount of monitored convalescence the patient was discharged from the department. Reviewed by HUEY Boles 12/24/2018 03:28 P Electronically Signed by Giovany Morales MD 12/24/2018 03:56 P
[2018-12-24] MEDS: IBUPROFEN 800 MG TAB PO PRN (17:10)
[2018-12-24] MEDS: PANTOPRAZOLE 40MG TAB (PROTONIX) PO SCH (21:04)
[2018-12-24] MEDS: SERTRALINE 100 MG TAB PO SCH (21:05)
[2018-12-24 22:00] VITALS: BP 142/72
--- NOTE | 2018-12-24 22:22 | IPNPDOC ---
Text Note Date of Service The patient was seen on 12/24/18. NOTE SUBJECTIVE: Patient seen at bed side after pig tail catheter placement . Complains of some pain at the site . And also pain in the left chest when coughs or takes deep breath . No fever or chills, no nausea or vomiting or diarrhea. Says wants to go home within the week end. PHYSICAL EXAMINATION Vitals: as below General: Middle-aged obese female in no acute distress. She is pleasant and cooperative. HEENT: Atraumatic, normocephalic. Mucous membranes are moist. Pupils are equal, round and reactive to light and accommodation. Extraocular eye movements are intact. The patient has her own teeth and dentition is fair. The posterior pharynx is free of exudates or erythema. Neck: Supple, no masses. No JVD. Lungs: Clear to auscultation bilaterally. No wheezes, rhonchi or rales. There is no dullness to percussion nor is there any E to A egophony. Heart: Regular rate and rhythm. No murmurs, gallops or rubs. Abdomen: Obese, soft, normoactive bowel sounds. No tenderness to palpation in all four quadrants. Back: Straight. No structural abnormalities. No CVA tenderness bilaterally. Extremities: No edema, clubbing or cyanosis bilaterally. Capillary refill is less than 2 seconds in all four extremities. Neuro: Awake, alert and oriented times three. Cranial nerves II-XII grossly intact. No diminished sensation. Muscle strength is 5/5 throughout.Assessment and Plan: This is a 48-year-old female with a past medical history significant for obesity, adjustment reaction, depression and anxiety, OCD and empyema in 2010 who presented to her primary care provider about 2 or 3 days ago complaining of left-sided pleuritic chest pain. She states it has been going on for a total of [address] she appears to have a loculated lung mass. She denies any fevers or chills or shortness of breath though she has noticed some dyspnea with extreme levels of exertion. She has a dry cough which she has had for about 10 years since her first empyema. She denies any sputum production, wheezes, hemoptysis, orthopnea, paroxysmal nocturnal dyspnea (PND), rigors or night sweats. She did need a chest tube in 2009 for her empyema. Labs and radiology : reviewed. Assessment and Plan: This is a 48-year-old female with a past medical history significant for obesity, adjustment reaction, depression and anxiety, OCD and empyema in 2009 who presented to her primary care provider about 2 or 3 days ago complaining of left-sided pleuritic chest pain. She states it has been going on for a total of [address] she appears to have a loculated lung mass. She denies any fevers or chills or shortness of breath though she has noticed some dyspnea with extreme levels of exertion. She has a dry cough which she has had for about 10 years since her first empyema. She denies any sputum pro duction, wheezes, hemoptysis, orthopnea, paroxysmal nocturnal dyspnea (PND), rigors or night sweats. She did need a chest tube in 2009 for her empyema. She was admitted for loculated pleural effusion and possibility of Empyema Empyema recurrent. Drainage by IR today. 165 ml of whitish fluid removed. A pig tail catheter was Analysis of th fluid suggestive of empyema started on augmentin. Amylase is very high in the fluid. Which could be due to pneumonia hoever pateint does not have any pneumonia. No abdominal complaints to suggestive of pancreatitis No fever no elevated WBC. will consult pulmonary and follow recommendations Anxiety and depression. Continue home Zoloft. Fatty liver no issues at present. Hiatal hernia and GERD will give PPI in place of ranitidine. Deep venous thrombosis (DVT) prophylaxis, TEDs and sequentials, the patient is able to ambulate and was encouraged to do so. VS,Fishbone, I+O VS, Fishbone, I+O Vital Signs Date Time Temp Pulse Resp B/P (MAP) Pulse Ox O2 Delivery O2 Flow Rate FiO2 12/23/18 22:00 97.7 65 18 156/85 (108) 93 I&O- Last 24 Hours up to 6 AM 12/24/18 06:00 Intake Total 600 ml Output Total 1700 ml Balance -1100 ml ANGELIC WHITE MD Dec 24, 2018 01:14
[2018-12-25 06:00] VITALS: BP 152/92
[2018-12-25] MEDS: AUGMENTIN 500 MG TAB PO SCH ×3 (06:00→20:37)
[2018-12-25] MEDS: IBUPROFEN 800 MG TAB PO PRN ×2 (06:05→17:00)
[2018-12-25 06:17] LABS: IMMUNOGLOBULIN M 73.5 MG/DL (40-230)
--- NOTE | 2018-12-25 09:31 | REP ---
Clinical: Empyema. Comparison: 12/21/2018. Technique: PA and lateral. Findings: A pleural-based pigtail catheter has been placed in the medial left posterior hemithorax and the previously noted loculated pleural collection appears to have resolved. The mediastinum and cardiac silhouette are normal. Lung sevilla are essentially clear. No effusion. No pneumothorax. Skeletal structures are intact. Impression: Pigtail catheter at the posterior left base. Previous loculated collection has resolved. Electronically Signed by Philipp Roca MD 12/25/2018 09:22 A
--- NOTE | 2018-12-25 12:28 | REP ---
Clinical: Follow up empyema. Technique: Axial noncontrast images from the thoracic inlet to the upper abdomen with coronal and sagittal re-formations. Comparison: 12/22/2018. Findings: A pigtail catheter is identified in the posteromedial left lung base at the site of prior loculated pleural collection which is essentially completely resolved. The posterior medial pleuroparenchymal changes surround the pigtail catheter along with minimal left lower lobe atelectasis. The lung sevilla are otherwise well aerated and essentially clear. No further consolidation, pleural effusion or pneumothorax identified. Tracheobronchial tree is patent. No significant adenopathy. Mediastinum demonstrates normal thoracic aorta, pulmonary vasculature and heart/pericardium. Limited upper abdomen demonstrates normal bilateral adrenal glands and evidence for prior cholecystectomy. Surrounding musculoskeletal structures are intact. Impression: 1. Previously noted loculated pleural collection has resolved leaving surrounding pleuroparenchymal changes without fluid. Minimal left basilar atelectasis noted. 2. Otherwise essentially normal noncontrast chest CT. Electronically Signed by Philipp Roca MD 12/25/2018 12:18 P
[2018-12-25 14:00] VITALS: BP 158/88
[2018-12-25] MEDS: SERTRALINE 100 MG TAB PO SCH (20:37)
[2018-12-25] MEDS: PANTOPRAZOLE 40MG TAB (PROTONIX) PO SCH (20:37)
--- NOTE | 2018-12-25 21:06 | IPNPDOC ---
Text Note Date of Service The patient was seen on 12/25/18. NOTE SUBJECTIVE: Patient seen at bed side after pig tail catheter placement. No complaints this am . Minimal output from the chest tube, No fever or chills. Today she did remember that about 2 to 3 days before her chest pain started she had eaten outside and had an upset stomach with lots of distension and bloating and right upper quadrant pain with some radiation to the right back. PHYSICAL EXAMINATION Vitals: as below General: Middle-aged obese female in no acute distress. She is pleasant and cooperative. HEENT: Atraumatic, normocephalic. Mucous membranes are moist. Pupils are equal, round and reactive to light and accommodation. Extraocular eye movements are intact. The patient has her own teeth and dentition is fair. The posterior pharynx is free of exudates or erythema. Neck: Supple, no masses. No JVD. Lungs: Clear to auscultation bilaterally. No wheezes, rhonchi or rales. There is no dullness to percussion nor is there any E to A egophony. Heart: Regular rate and rhythm. No murmurs, gallops or rubs. Abdomen: Obese, soft, normoactive bowel sounds. No tenderness to palpation in all four quadrants. Back: Straight. No structural abnormalities. No CVA tenderness bilaterally. Extremities: No edema, clubbing or cyanosis bilaterally. Capillary refill is less than 2 seconds in all four extremities. Neuro: Awake, alert and oriented times three. Cranial nerves II-XII grossly intact. No diminished sensation. Muscle strength is 5/5 throughout.Assessment and Plan: This is a 48-year-old female with a past medical history significant for obesity, adjustment reaction, depression and anxiety, OCD and empyema in 2009 who presented to her primary care provider about 2 or 3 days ago complaining of left-sided pleuritic chest pain. She states it has been going on for a total of [address] she appears to have a loculated lung mass. She denies any fevers or chills or shortness of breath though she has noticed some dyspnea with extreme levels of exertion. She has a dry cough which she has had for about 10 years since her first empyema. She denies any sputum production, wheezes, hemoptysis, orthopnea, paroxysmal nocturnal dyspnea (PND), rigors or night sweats. She did need a chest tube in 2009 for her empyema. Labs and radiology : reviewed. Assessment and Plan: This is a 48-year-old female with a past medical history significant for obesity, adjustment reaction, depression and anxiety, OCD and empyema in 2009 who presented to her primary care provider about 2 or 3 days ago complaining of left-sided pleuritic chest pain. She states it has been going on for a total of [address] she appears to have a loculated lung mass. She denies any fevers or chills or shortness of breath though she has noticed some dyspnea with extreme levels of exertion. She has a dry cough which she has had for about 10 years since her first empyema. She denies any sputum production, wheezes, hemoptysis, orthopnea, paroxysmal nocturnal dyspnea (PND), rigors or night sweats. She did need a chest tube in 2009 for her empyema. She was admitted for loculated pleural effusion and possibility of Empyema Empyema recurrent. Drainage by IR, 165 ml of whitish fluid removed. A pig tail catheter in place. Analysis of the fluid suggestive of empyema started on Augmentin. Amylase is very high in the fluid. Which could be due to pneumonia however patient does not have any pneumonia. Today she did remember that 2 to 3 days pror to starting the chest pain she did have an upset stomach which lasted for 2 days. Pulmonary following Anxiety and depression. Continue home Zoloft. Fatty liver no issues at present. Hiatal hernia and GERD will give PPI in place of ranitidine. Deep venous thrombosis (DVT) prophylaxis, TEDs and sequentials, the patient is able to ambulate and was encouraged to do so. VS,Fishbone, I+O VS, Fishbone, I+O Vital Signs Date Time Temp Pulse Resp B/P (MAP) Pulse Ox O2 Delivery O2 Flow Rate FiO2 12/25/18 14:00 97.2 66 17 158/88 (385) 94 I&O- Last 24 Hours up to 6 AM 12/25/18 06:00 Intake Total 1675 ml Output Total 1518 ml Balance 157 ml ANGELIC WHITE MD Dec 25, 2018 21:06
[2018-12-25 22:00] VITALS: BP 158/84
[2018-12-26 06:00] VITALS: BP 138/72
[2018-12-26] MEDS: AUGMENTIN 500 MG TAB PO SCH (06:14)
[2018-12-26] MEDS: IBUPROFEN 800 MG TAB PO PRN (09:13)
[2018-12-26 10:19] LABS: BASO % 0.3 % (0.0-1.0); EOS # 0.1 10^3/uL (0.0-0.50); EOS % 1.7 % (0.0-3.0); HEMATOCRIT 38.5 % (36.0-47.0); LYMPH # 1.5 10^3/uL (1.5-4.5); MEAN CORPUSCULAR HEMOGLOBIN 30.2 pg (27.0-33.0); MEAN CORPUSCULAR HGB CONC 33.8 g/dl (32.0-36.5); MEAN CORPUSCULAR VOLUME 89.3 fl (80.0-96.0); MONO # 0.4 10^3/uL (0.0-0.8); MONO % 7.1 % (0.0-5.0); NEUTROPHILS % 66.4 % (36.0-66.0); PLATELET COUNT, AUTOMATED 254 10^3/uL (150-450); RED BLOOD COUNT 4.31 10^6/uL (4.00-5.40)
[2018-12-26] MEDS ORDERED: AUGM875T28 PO (11:45)
--- NOTE | 2018-12-26 14:19 | IPN ---
DATE OF SERVICE: 12/26/2018 Lilibeth is at bedside today. States that she feels well. No cough, fever or chills. She has had no fevers. She states she is breathing well without any chest discomfort. No pleurisy. Her chest tube with a total of 8 mL yesterday of clear yellow fluid, none so far this morning. White count remains normal. I removed the pigtail catheter at bedside today. A Vaseline gauze was placed over the site. PHYSICAL EXAMINATION: Temperature 98.3, pulse is 57, respiratory rate is 15, blood pressure is 138/72 with a mean arterial blood pressure of 94, and oxygen saturation is 98% on room air. General: Awake, alert and oriented. Affect and mood appropriate. Nutrition and hygiene good. Speech is clear and non tangential. HEENT: Sclerae clear and anicteric. Pupils equal, react to light. Mucous membranes moist without lesions. Oropharynx without erythema or exudate. Tongue is midline. Neck is supple. No tracheal deviation or mass. Lymphs: No supraclavicular, cervical or axillary adenopathy. Cardiac: Regular S1 and S2 without audible murmur or gallop. No elevated jugular venous pulse (JVP). No peripheral edema. Pulmonary: Clear to auscultation. Without rales, rhonchi or wheezes. No dullness to percussion. No accessory muscle use. Abdomen: Soft, nontender, nondistended. No hepatosplenomegaly. No masses or hernia. Extremities: No cyanosis, clubbing or edema. LABORATORY EVALUATION: This morning shows a normal white blood cell count at 6.0, hemoglobin of 13, platelet count of 254, sodium 141, potassium 3.9, chloride 105, bicarb of 30, BUN of 10 and creatinine of 0.8. Amylase and lipase are normal. I am not sure why those were checked as the patient is asymptomatic. Immunoglobulins were checked with a normal IgG, IgA, IgM. Pleural fluid analysis showed a pH of 7.6, white blood cells of 85,000 with 88% neutrophilia. Fluid glucose was low at 8, total protein was 2, albumin was 0.3, LDH was 4832. IMPRESSION: Likely empyema, although no organisms on Gram stain. Highly neutrophilic pus resulting with a low glucose. I do not have the exact etiology of the empyema. The most likely cause I believe is aspiration. She has no evidence of immunodeficiency. No other cause of pleural disease on my review of systems. Therefore, I recommend continuing 6 weeks of Augmentin. We discussed probiotics. She was advised to call the office if she has any diarrhea. She will followup in my office in 3-4 weeks with a chest x-ray to ensure continued clinical stability.
--- NOTE | 2018-12-27 00:02 | DS.PDOC ---
Discharge Summary General Date of Admission Dec 23, 2018 at 17:27 Date of Discharge 12/26/18 Attending Physician: ANGELIC WHITE MD Specialist/Consultants Involve: GIULIANO JOHNSON Discharge Summary PROCEDURES PERFORMED DURING STAY: Chest pig tail catheter placement and removal DISCHARGE DIAGNOSES: Empyema second episode Hiatal hernia and GERD Anxiety and Depression OCD Obesity Fatty liver. COMPLICATIONS/CHIEF COMPLAINT: Empyema. HISTORY OF PRESENT ILLNESS: please see history and physical HOSPITAL COURSE: This is a 48-year-old female with a past medical history significant for obesity, adjustment reaction, depression and anxiety, OCD and empyema in 2009 who presented to her primary care provider about 2 or 3 days ago complaining of left-sided pleuritic chest pain. She states it has been going on for a total of [address] she appears to have a loculated lung mass. She denies any fevers or chills or shortness of breath though she has noticed some dyspnea with extreme levels of exertion. She has a dry cough which she has had for about 10 years since her first empyema. She denies any sputum production, wheezes, hemoptysis, orthopnea, paroxysmal nocturnal dyspnea (PND), rigors or night sweats. She did need a chest tube in 2009 for her empyema. She was admitted for loculated pleural effusion and possibility of Empyema Empyema recurrent. Drainage by IR, 165 ml of whitish fluid removed. A pig tail catheter in place. Analysis of the fluid suggestive of empyema started on Augmentin. Amylase is very high in the fluid. Which could be due to pneumonia however patient does not have any pneumonia. As per pulmonary most likely due to Aspiration. No immunodeficiency noted. continue Augmentin for 6 weeks Follow up Pulmonary in 3 to 4 weeks with CXR. Anxiety and depression. Continue home Zoloft. Fatty liver no issues at present. Hiatal hernia and GERD continue home medication DISCHARGE MEDICATIONS: Please see below. ALLERGIES: Please see below. PHYSICAL EXAMINATION ON DISCHARGE: VITAL SIGNS: Please see below. General: Middle-aged obese female in no acute distress. She is pleasant and cooperative. HEENT: Atraumatic, normocephalic. Mucous membranes are moist. Pupils are equal, round and reactive to light and accommodation. Extraocular eye movements are intact. The patient has her own teeth and dentition is fair. The posterior pharynx is free of exudates or erythema. Neck: Supple, no masses. No JVD. Lungs: Clear to auscultation bilaterally. No wheezes, rhonchi or rales. There is no dullness to percussion nor is there any E to A egophony. Pig tail cath removed. Heart: Regular rate and rhythm. No murmurs, gallops or rubs. Abdomen: Obese, soft, normoactive bowel sounds. No tenderness to palpation in all four quadrants. Back: Straight. No structural abnormalities. No CVA tenderness bilaterally. Extremities: No edema, clubbing or cyanosis bilaterally. Capillary refill is less than 2 seconds in all four extremities. Neuro: Awake, alert and oriented times three. Cranial nerves II-XII grossly intact. No diminished sensation. Muscle strength is 5/5 throughout LABORATORY DATA: Please see below. ACTIVITY: [As tolerated]. DIET: As tolerated DISPOSITION: 01 Home, Self-Care. DISCHARGE INSTRUCTIONS: Follow up with Dr Johnson in 3 to 4 weeks with CXR Follow up PMD in 1 week DISCHARGE CONDITION: [Stable]. TIME SPENT ON DISCHARGE: Greater than 30 minutes. Vital Signs/I&Os Vital Signs Date Time Temp Pulse Resp B/P (MAP) Pulse Ox O2 Delivery O2 Flow Rate FiO2 12/26/18 06:00 98.3 57 15 138/72 (94) 98 I&O- Last 24 Hours up to 6 AM 12/26/18 06:00 Intake Total 1230 ml Output Total 3258 ml Balance -2028 ml Laboratory Data Labs 24H Laboratory Tests 2 12/26/18 10:05: Immature Granulocyte % (Auto) 0.5, White Blood Count 6.0, Red Blood Count 4.31, Hemoglobin 13.0, Hematocrit 38.5, Mean Corpuscular Volume 89.3, Mean Corpuscular Hemoglobin 30.2, Mean Corpuscular Hemoglobin Concent 33.8, Red Cell Distribution Width 12.9, Platelet Count 254, Neutrophils (%) (Auto) 66.4H, Lymphocytes (%) (Auto) 24.0, Monocytes (%) (Auto) 7.1H, Eosinophils (%) (Auto) 1.7, Basophils (%) (Auto) 0.3, Neutrophils # (Auto) 4.0, Lymphocytes # (Auto) 1.5, Monocytes # (Auto) 0.4, Eosinophils # (Auto) 0.1, Basophils # (Auto) 0.0, Nucleated Red Blood Cells % (auto) 0.0 CBC/BMP Laboratory Tests 12/26/18 10:05 Red Blood Count 4.31, Mean Corpuscular Volume 89.3, Mean Corpuscular Hemoglobin 30.2, Mean Corpuscular Hemoglobin Concent 33.8, Red Cell Distribution Width 12.9, Neutrophils (%) (Auto) 66.4 H, Lymphocytes (%) (Auto) 24.0, Monocytes (%) (Auto) 7.1 H, Eosinophils (%) (Auto) 1.7, Basophils (%) (Auto) 0.3, Neutrophils # (Auto) 4.0, Lymphocytes # (Auto) 1.5, Monocytes # (Auto) 0.4, Eosinophils # (Auto) 0.1, Basophils # (Auto) 0.0 Microbiology Microbiology 12/24/18 Acid Fast Stain, Received Pending 12/24/18 Mycobacterial Culture, Received Pending 12/24/18 Fungal Smear, Received Pending 12/24/18 Fungal Culture, Received Pending 12/24/18 Gram Stain - Final, Complete 12/24/18 Anaerobic Culture - Final, Complete 12/24/18 Body Fluid Culture - Final, Complete Discharge Medications Scheduled Amoxicillin/Clavulanate Potas (Augmentin 875-125 mg) 1 Tab Tab, 875 MG PO BID Cetirizine HCl (Zyrtec Allergy) 10 Mg Cap, 10 MG PO DAILY, (Reported) Ranitidine HCl (Zantac) 150 Mg Tab, 1 TAB PO DAILY, (Reported) Sertraline Hcl (Zoloft) 100 Mg Tab, 100 MG PO QHS, (Reported) Scheduled PRN (Alavert Allergy/Sinus 5-120 mg) 1 Tab Tab, 1 TAB PO BID PRN for CONGESTION, (Reported) (Biofreeze) 4 % Gel, 1 DOSE TOP QID PRN for PAIN, (Reported) APPLY TO LEFT SHOULDER AND SIDE Acetaminophen (Tylenol Extra Strength) 500 Mg Tab, 1,000 MG PO TID PRN for PAIN, (Reported) Ibuprofen (Advil) 200 Mg Tab, 800 MG PO Q6H PRN for PAIN, (Reported) [Lidocaine Compound] , 1 DOSE TOP BID PRN for PAIN, (Reported) FROM [facility] - LIDOCAINE, MELOXICAM, AND GABAPENTIN - APPLY TO LEFT SHOULDER AND SIDE Allergies Coded Allergies: No Known Drug Allergy (Unverified Allergy, Unknown, 02/19/17) ANGELIC WHITE MD Dec 27, 2018 00:02
== END 2018-12-26 13:03 | disposition home or self-care (01) ==
LOC: M MSPAV 17:27
PROVIDERS: ADMIT Internal Medicine Nephrology; ATTEND Internal Medicine Nephrology
DX: J86.9 Pyothorax without fistula (principal); K44.9 Diaphragmatic hernia without obstruction or gangrene; K21.9 Gastro-esophageal reflux disease without esophagitis; F41.9 Anxiety disorder, unspecified; F32.9 Major depressive disorder, single episode, unspecified; F42.9 Obsessive-compulsive disorder, unspecified; E66.9 Obesity, unspecified; K76.0 Fatty (change of) liver, not elsewhere classified; Z79.899 Other long term (current) drug therapy

== ENCOUNTER → 2018-12-23 | Outpatient (REF) | payer OTHER ==
[~2018-12-23] MED LIST changes: -ISOVUE-370 76% 100ML VIAL (Q9967) As Ordered ONE
== END ==
LOC: M SFHCLERA 09:53
PROVIDERS: ATTEND Family Medicine
DX: J85.2 Abscess of lung without pneumonia (principal)

== ENCOUNTER → 2019-01-18 | Outpatient (CLI) | payer BC, OTHER ==
[~2019-01-18] MED LIST changes: +ALAVTAB PO; +AUGM875T28 PO; +BIOF4GEL2 TOP; +TYLE500T78 PO; +ZANT150T15 PO; +[UNRECOGNIZED DRUG - OTHER] TOP
--- NOTE | 2019-01-18 14:26 | REP ---
Clinical: Left-sided chest pain and history of pleural effusion. . Comparison: 12/25/2018 . Technique: PA and lateral. Findings: The mediastinum and cardiac silhouette are normal. The lung sevilla are clear and without acute consolidation, or pneumothorax. There is subtle straightening and blunting of the left diaphragmatic surface and costophrenic angle which may represent chronic change versus small residual pleural reaction. The skeletal structures are intact and normal. Impression: 1. No acute cardiopulmonary process. 2. Straightening of the left diaphragmatic surface and blunting of the costophrenic angle likely represents chronic change and less likely small residual pleural reaction. Electronically Signed by Philipp Roca MD 01/18/2019 02:18 P
== END ==
LOC: M LRY 12:36
PROVIDERS: ATTEND Internal Medicine Pulmonary Disease
DX: J98.6 Disorders of diaphragm (principal)

== ENCOUNTER → 2019-02-18 | Outpatient (CLI) | payer BC, OTHER ==
[~2019-02-18] MED LIST changes: -NORC1TAB4 PO; +NORC1TAB7 PO
--- NOTE | 2019-02-19 07:40 | REP ---
CT chest without contrast: HISTORY: Abnormal lung finding. COMPARISON: 12/25/2018 Linear densities are present in the left lower lobe consistent with scar. The right lung is clear. There is no pleural effusion. The heart is normal in size. There is no mediastinal mass. Minimal degenerative change is present in the spine. The patient is status post cholecystectomy. IMPRESSION: Left lower lobe scarring. Electronically Signed by Julio Ambrocio MD 02/19/2019 07:59 A
== END ==
LOC: M RAD 17:19
PROVIDERS: ATTEND Internal Medicine Pulmonary Disease
DX: J98.4 Other disorders of lung (principal); Z90.49 Acquired absence of other specified parts of digestive tract

== ENCOUNTER → 2019-03-31 | Outpatient (CLI) | payer BC, OTHER ==
[~2019-03-31] MED LIST changes: +METHACHOLINE KIT (J7674) INH ONE
--- NOTE | 2019-03-31 10:40 | PFTRPT ---
Height: 65.00 Inches Weight: 223.00 Lbs BSA: 2.07 Diagnosis: R05 DATE OF PROCEDURE: 03/31/2019 ORDERED BY: Dr. Escobedo INTERPRETATION: Study of excellent technical quality. Under protocol, methacholine was administered. Even after a maximal dose of 25 mg or 188.875 CDUs, no provocation dose ever achieved. IMPRESSION: Negative methacholine challenge study. MTDD
== END ==
LOC: M CARPUL 09:28
PROVIDERS: ATTEND Internal Medicine Pulmonary Disease
DX: R05 Cough (principal)
CPT/HCPCS: 94070; J7674

== ENCOUNTER → 2019-08-03 | Outpatient (CLI) | payer BC, OTHER ==
[~2019-08-03] MED LIST changes: -METHACHOLINE KIT (J7674) INH ONE
--- NOTE | 2019-08-03 15:54 | REPMRS ---
Patient History The patient states she has not had a clinical breast exam in over a year. Family history of breast cancer under age 50 in maternal aunt, colorectal cancer at age 50 or over in mother, colorectal cancer at age 50 or over in maternal grandmother, colorectal cancer at age 50 or over in paternal grandfather, colorectal cancer at age 50 or over in maternal grandfather. 3D TOMOSYNTHESIS WAS PERFORMED. [facility] lifetime risk for breast cancer is 13.0%. Digital Mammo Screening Bilat: August 03, 2019 - Exam #: [id number] Bilateral CC and MLO view(s) were taken. Technologist: Daniella Monroe, Technologist Prior study comparison: August 28, 2016, bilateral digital mammo screening bilat performed at [facility]. March 31, 2014, digital woman screen mammo, performed at [facility]. FINDINGS: There are scattered fibroglandular densities. There has been no change in the appearance of the mammogram from the prior studies. There is a mild amount of residual fibroglandular tissue which is fairly symmetric. There is no interval development of dominant mass, architectural distortion, or clustered microcalcification suggestive of malignancy. Assessment: BI-RADS/ACR category 1 mammogram. Negative Mammogram. Recommendation Routine screening mammogram in 1 year (for women over age 40). This mammogram was interpreted with the aid of an FDA-approved computer-aided dectection system. Electronically Signed By: Ascencion Anaya MD 08/03/19 [id number]
== END ==
LOC: M RAD 15:15
PROVIDERS: ATTEND Family Medicine
DX: Z12.31 Encounter for screening mammogram for malignant neoplasm of breast (principal); Z80.0 Family history of malignant neoplasm of digestive organs

== ENCOUNTER → 2019-10-10 | Outpatient (REF) | payer OTHER | LOC: M LAB LCGH 15:03 | PROVIDERS: ATTEND Physician Assistant | DX: D36.7 Benign neoplasm of other specified sites (principal) ==

== ENCOUNTER → 2021-08-16 | Outpatient (CLI) | payer OTHER ==
[2021-08-16 11:01] LABS: ALBUMIN 3.5 GM/DL (3.2-5.2); ALT/SGPT 44 U/L (12-78); BILIRUBIN,TOTAL 0.3 MG/DL (0.2-1.0); BLOOD UREA NITROGEN 13 MG/DL (7-18); CALCIUM LEVEL 8.7 MG/DL (8.5-10.1); CARBON DIOXIDE LEVEL 30 MEQ/L (21-32); CHLORIDE LEVEL 106 MEQ/L (98-107); CHOLESTEROL LEVEL 239 MG/DL (<200); CHOLESTEROL RISK RATIO 4.686 (<5); CREATININE FOR GFR 0.92 MG/DL (0.55-1.30); GLOMERULAR FILTRATION RATE > 60.0 (>51); GLUCOSE, FASTING 86 MG/DL (70-100); HDL CHOLESTEROL 51 MG/DL (>40); LDL CHOLESTEROL 161 MG/DL (<100); NON-HDL-C 188 MG/DL; POTASSIUM SERUM 4.2 MEQ/L (3.5-5.1); SODIUM LEVEL 141 MEQ/L (136-145); TRIGLYCERIDES LEVEL 135 MG/DL (<150)
== END ==
LOC: M WUC 08:52
PROVIDERS: ATTEND Student in an Organized Health Care Education/Training Program
DX: I10 Essential (primary) hypertension (principal)

== ENCOUNTER → 2022-12-05 | Outpatient (CLI) | payer OTHER ==
[2022-12-05 09:42] LABS: BASO % 0.5 % (0.0-1.0); EOS # 0.1 10^3/uL (0.0-0.5); EOS % 1.4 % (0.0-3.0); HEMATOCRIT 42.5 % (36.0-47.0); HEMOGLOBIN 14.1 g/dl (12.0-15.5); LYMPH # 1.8 10^3/uL (1.5-5.0); LYMPH % 28.4 % (24.0-44.0); MEAN CORPUSCULAR HEMOGLOBIN 30.3 pg (27.0-33.0); MEAN CORPUSCULAR HGB CONC 33.2 g/dl (32.0-36.5); MEAN CORPUSCULAR VOLUME 91.2 fl (80.0-96.0); MONO # 0.5 10^3/uL (0.0-0.8); MONO % 6.9 % (2.0-8.0); NEUTROPHILS # 4.1 10^3/uL (1.5-8.5); NEUTROPHILS % 62.6 % (36.0-66.0); PLATELET COUNT, AUTOMATED 272 10^3/uL (150-450); RED BLOOD COUNT 4.66 10^6/uL (4.00-5.40); WHITE BLOOD COUNT 6.5 10^3/uL (4.0-10.0)
[2022-12-05 10:14] LABS: ALKALINE PHOSPHATASE 76 U/L (46-116); ALT/SGPT 36 U/L (7.0-40); AST/SGOT 20 U/L (<34); BILIRUBIN,TOTAL 0.4 MG/DL (0.3-1.2); BLOOD UREA NITROGEN 19 MG/DL (9-23); CALCIUM LEVEL 9.2 MG/DL (8.5-10.1); CARBON DIOXIDE LEVEL 33 MMOL/L (20-31); CHLORIDE LEVEL 100 MMOL/L (98-107); CHOLESTEROL LEVEL 235 MG/DL (<200); CHOLESTEROL RISK RATIO 4.31 (<5); CREATININE FOR GFR 0.87 MG/DL (0.55-1.30); GLOMERULAR FILTRATION RATE > 60.0 (>51); GLUCOSE, FASTING 91 MG/DL (60-100); HDL CHOLESTEROL 54.5 MG/DL (>40); LDL CHOLESTEROL 155.7 MG/DL (<100); NON-HDL-C 181 MG/DL; POTASSIUM SERUM 3.7 MMOL/L (3.5-5.1); SODIUM LEVEL 140 MMOL/L (136-145); TOTAL PROTEIN 6.8 G/DL (5.7-8.2); TRIGLYCERIDES LEVEL 124 MG/DL (<150)
== END ==
LOC: M WUC 08:02
PROVIDERS: ATTEND Student in an Organized Health Care Education/Training Program
DX: I10 Essential (primary) hypertension (principal)

== ENCOUNTER → 2023-03-24 | Outpatient (CLI) | payer BC, OTHER | LOC: M WHC 14:24 | PROVIDERS: ATTEND Student in an Organized Health Care Education/Training Program | DX: Z12.31 Encounter for screening mammogram for malignant neoplasm of breast (principal); Z80.3 Family history of malignant neoplasm of breast; Z80.0 Family history of malignant neoplasm of digestive organs ==

== ENCOUNTER → 2023-10-09 | Outpatient (CLI) | payer BC, OTHER ==
[~2023-10-09] MED LIST changes: +ISOVUE-370 76% 100ML VIAL As Ordered ONE
== END ==
LOC: M RAD 16:49
PROVIDERS: ATTEND Nurse Practitioner
DX: R05.9 Cough, unspecified (principal); R91.1 Solitary pulmonary nodule
CPT/HCPCS: 71260; Q9967

== ENCOUNTER 2024-03-05 13:50 | Emergency (ER) | payer OTHER, BC ==
[~2024-03-05] VITALS: Ht 165.1 cm; Wt 98.8 kg
[~2024-03-05 13:50] MED LIST changes: -ISOVUE-370 76% 100ML VIAL As Ordered ONE
[2024-03-05] MEDS ORDERED: BENZ-18 (14:05)
[2024-03-05] MEDS ORDERED: HYDR-3490 (14:05)
[2024-03-05] MEDS ORDERED: PEPC1TAB5 PO (14:05)
[2024-03-05 15:34] LABS: BASO % 0.3 % (0.0-1.0); EOS # 0.1 10^3/uL (0.0-0.5); EOS % 0.4 % (0.0-3.0); HEMATOCRIT 39.3 % (36.0-47.0); HEMOGLOBIN 13.5 g/dl (12.0-15.5); LYMPH # 1.3 10^3/uL (1.5-5.0); LYMPH % 10.5 % (24.0-44.0); MEAN CORPUSCULAR HEMOGLOBIN 30.8 pg (27.0-33.0); MEAN CORPUSCULAR HGB CONC 34.4 g/dl (32.0-36.5); MEAN CORPUSCULAR VOLUME 89.7 fl (80.0-96.0); MONO # 0.7 10^3/uL (0.0-0.8); MONO % 5.4 % (2.0-8.0); NEUTROPHILS # 9.9 10^3/uL (1.5-8.5); NEUTROPHILS % 83.1 % (36.0-66.0); PLATELET COUNT, AUTOMATED 254 10^3/uL (150-450); RED BLOOD COUNT 4.38 10^6/uL (4.00-5.40); WHITE BLOOD COUNT 11.9 10^3/uL (4.0-10.0)
[2024-03-05] MEDS ORDERED: MORPHINE 2 MG/ML 1ML VIAL IV PRN (15:40)
[2024-03-05 15:48] LABS: INR 1.05; PARTIAL THROMBOPLASTIN TIME 24.6 SECONDS (24.8-34.2); PROTHROMBIN TIME 13.4 SECONDS (12.5-14.5)
[2024-03-05 15:58] LABS: ALBUMIN 4.2 G/DL (3.2-5.2); BILIRUBIN,DIRECT 0.2 MG/DL (<0.4); BILIRUBIN,TOTAL 0.6 MG/DL (0.3-1.2); TOTAL PROTEIN 6.9 G/DL (5.7-8.2)
[2024-03-05] MEDS ORDERED: ISOVUE-370 76% 100ML VIAL As Ordered ONE (16:00)
[2024-03-05 16:29] LABS: APPEARANCE, URINE HAZY (CLEAR); BACTERIA, URINE AUTO NEGATIVE (NEGATIVE); BILIRUBIN, URINE AUTO NEGATIVE (NEGATIVE); BLOOD, URINE BLOOD NEGATIVE (NEGATIVE); COLOR, URINE YELLOW (YELLOW); GLUCOSE, URINE (UA) AUTO NEGATIVE (NEGATIVE); KETONE, URINE AUTO NEGATIVE (NEGATIVE); LEUKOCYTE ESTERASE, URINE AUTO TRACE (NEGATIVE); MUCUS, URINE SMALL (NEGATIVE); NITRITE, URINE AUTO NEGATIVE (NEGATIVE); PROTEIN, URINE AUTO NEGATIVE (NEGATIVE); RBC, URINE AUTO 3 /HPF (0-3); SPECIFIC GRAVITY URINE AUTO 1.019 (1.002-1.035); SQUAMOUS EPITHELIAL CELL UR AU 5 /HPF (0-6); UROBILINOGEN, URINE AUTO 0.2 mg/dL (0.0-2.0); WBC, URINE AUTO 6 /HPF (0-3)
[2024-03-05 17:45] VITALS: TEMP 97.2
[2024-03-05] MEDS ORDERED: AMOX875T2 PO (18:15)
[2024-03-05] MEDS ORDERED: METH-1164 PO (18:15)
[2024-03-05] MEDS: methocarbamoL 500 MG TAB PO ONE (18:21)
[2024-03-05] MEDS: AUGMENTIN 875 MG TAB PO ONE (18:22)
[2024-03-05 18:25] VITALS: BP 142/86; O2SAT 96
== END 2024-03-05 18:27 | disposition home or self-care (01) ==
LOC: M ED 13:50
DX: S30.1XXA Contusion of abdominal wall, initial encounter (principal); V89.2XXA Person injured in unspecified motor-vehicle accident, traffic, initial encounter; Y92.9 Unspecified place or not applicable; Y93.9 Activity, unspecified; Y99.9 Unspecified external cause status; K57.92 Diverticulitis of intestine, part unspecified, without perforation or abscess without bleeding; Z79.1 Long term (current) use of non-steroidal anti-inflammatories (NSAID); Z79.2 Long term (current) use of antibiotics; Z79.899 Other long term (current) drug therapy
CPT/HCPCS: 71260; 74177; 80047; 80076; 81001; 82150; 83605; 83690; 85025; 85610; 85730; 86850; 86900; 86901; 93005; 93041; 94760; 96374; 99285; Q9967

== ENCOUNTER → 2024-10-31 | Outpatient (REF) | payer BC ==
[~2024-10-31] MED LIST changes: +AMOX875T2 PO; +BENZ-18; +HYDR-3490; +METH-1164 PO; +PEPC1TAB5 PO
[2024-10-31 18:49] LABS: BASO % 0.6 % (0.0-1.0); EOS # 0.1 10^3/uL (0.0-0.5); EOS % 1.9 % (0.0-3.0); HEMATOCRIT 40.5 % (36.0-47.0); HEMOGLOBIN 13.5 g/dl (12.0-15.5); LYMPH # 1.6 10^3/uL (1.5-5.0); MEAN CORPUSCULAR HEMOGLOBIN 30.1 pg (27.0-33.0); MEAN CORPUSCULAR HGB CONC 33.3 g/dl (32.0-36.5); MEAN CORPUSCULAR VOLUME 90.2 fl (80.0-96.0); MONO # 0.5 10^3/uL (0.0-0.8); MONO % 7.3 % (2.0-8.0); NEUTROPHILS # 3.9 10^3/uL (1.5-8.5); NEUTROPHILS % 63.9 % (36.0-66.0); PLATELET COUNT, AUTOMATED 261 10^3/uL (150-450); RED BLOOD COUNT 4.49 10^6/uL (4.00-5.40); WHITE BLOOD COUNT 6.2 10^3/uL (4.0-10.0)
[2024-10-31 18:56] LABS: ALBUMIN 3.9 G/DL (3.2-5.2); ALKALINE PHOSPHATASE 81 U/L (35-104); ALT/SGPT 46 U/L (7.0-40); AST/SGOT 20 U/L (<34); BILIRUBIN,TOTAL 0.4 MG/DL (0.3-1.2); BLOOD UREA NITROGEN 12 MG/DL (9-23); CALCIUM LEVEL 9.5 MG/DL (8.5-10.1); CARBON DIOXIDE LEVEL 30 MMOL/L (20-31); CHLORIDE LEVEL 101 MMOL/L (98-107); CHOLESTEROL LEVEL 239 MG/DL (<200); CHOLESTEROL RISK RATIO 5.54 (<5); CREATININE FOR GFR 0.66 MG/DL (0.55-1.30); GLOMERULAR FILTRATION RATE > 60.0 (>51); GLUCOSE, FASTING 85 MG/DL (60-100); HDL CHOLESTEROL 43.1 MG/DL (>40); LDL CHOLESTEROL 154.9 MG/DL (<100); NON-HDL-C 195.9 MG/DL; POTASSIUM SERUM 3.7 MMOL/L (3.5-5.1); SODIUM LEVEL 141 MMOL/L (136-145); THYROID STIMULATING HORMONE 0.717 uIU/ML (0.55-4.78); TOTAL 25(OH) VITAMIN D 36.9 NG/ML (20.0-100.0); TOTAL PROTEIN 7.1 G/DL (5.7-8.2); TRIGLYCERIDES LEVEL 205 MG/DL (<150)
[2024-10-31 19:56] LABS: HEMOGLOBIN A1c 5.4 % (4.0-6.0)
== END ==
LOC: M SFHCLERA 08:58
DX: K21.9 Gastro-esophageal reflux disease without esophagitis (principal); R91.1 Solitary pulmonary nodule; E78.5 Hyperlipidemia, unspecified; Z23 Encounter for immunization

== ENCOUNTER → 2025-10-10 | Outpatient (CLI) | payer BC ==
[2025-10-10 15:55] LABS: BASO # 0.0 10^3/uL (0.0-0.2); BASO % 0.4 % (0.0-1.0); EOS # 0.1 10^3/uL (0.0-0.5); EOS % 1.4 % (0.0-3.0); LYMPH # 2.2 10^3/uL (1.5-5.0); LYMPH % 30.4 % (24.0-44.0); MONO # 0.5 10^3/uL (0.0-0.8); MONO % 6.5 % (2.0-8.0); NEUTROPHILS # 4.4 10^3/uL (1.5-8.5); NEUTROPHILS % 61.0 % (36.0-66.0); PLATELET COUNT, AUTOMATED 296 10^3/uL (150-450)
[2025-10-10 16:07] LABS: ESTIMATED AVERAGE GLUCOSE 111.0 MG/DL (60-110)
[2025-10-10 16:37] LABS: ALT/SGPT 36 U/L (7.0-40); AST/SGOT 22 U/L (<34); CALCIUM LEVEL 9.0 MG/DL (8.5-10.1); CARBON DIOXIDE LEVEL 30 MMOL/L (20-31); CHLORIDE LEVEL 94 MMOL/L (98-107); CHOLESTEROL LEVEL 256 MG/DL (<200); CHOLESTEROL RISK RATIO 4.75 (<5); CREATININE FOR GFR 0.70 MG/DL (0.55-1.30); GLOMERULAR FILTRATION RATE > 90.0 (>51); LDL CHOLESTEROL 170.2 MG/DL (<100); NON-HDL-C 202.2 MG/DL; POTASSIUM SERUM 3.6 MMOL/L (3.5-5.1); SODIUM LEVEL 133 MMOL/L (136-145); TRIGLYCERIDES LEVEL 160 MG/DL (<150)
== END ==
LOC: M PLALAB 13:42
PROVIDERS: ATTEND Student in an Organized Health Care Education/Training Program
DX: Z00.00 Encounter for general adult medical examination without abnormal findings (principal)

== ENCOUNTER → 2025-10-10 | Outpatient (CLI) | payer BC | LOC: M WHC 13:44 | PROVIDERS: ATTEND Student in an Organized Health Care Education/Training Program | DX: Z12.31 Encounter for screening mammogram for malignant neoplasm of breast (principal); R92.8 Other abnormal and inconclusive findings on diagnostic imaging of breast ==